=== PATIENT | male | born 1945 | race Caucasian/White ===

== ENCOUNTER 2021-01-07 09:28 | Outpatient (RCR) | payer MEDICARE, SELFPAY | END 2021-01-26 23:59 | disposition home or self-care (01) | LOC: SPT 09:28 | PROVIDERS: Family Provider Family Medicine; PCP Family Medicine; Referring Provider Orthopaedic Surgery; Visit Provider Orthopaedic Surgery | DX: M48.062 Spinal stenosis, lumbar region with neurogenic claudication (principal) | CPT/HCPCS: 97110; 97161 ==

== ENCOUNTER 2021-09-10 11:54 | Outpatient (CLI) | payer MEDICARE, SELFPAY ==
[2021-09-10 12:00] VITALS: BP 155/80; PULSE 68; RESP 16; TEMP 36.4; O2SAT 97; BMI 23.0
[2021-09-10 12:50] VITALS: BP 155/74; PULSE 54; RESP 16; TEMP 36.6; O2SAT 97
[2021-09-10 13:57] VITALS: BP 156/75; PULSE 54; RESP 18; TEMP 36.6; O2SAT 98
== END 2021-09-10 11:55 | disposition home or self-care (01) ==
LOC: OPS 11:57
PROVIDERS: PCP Family Medicine; Visit Provider Family Medicine
DX: U07.1 COVID-19 (principal)
CPT/HCPCS: 96365

== ENCOUNTER → 2022-04-26 10:55 | Outpatient (BNVA) | payer MEDICARE, SELFPAY | PROVIDERS: PCP Family Medicine; Visit Provider Family Medicine | DX: N41.1 Chronic prostatitis (principal) | CPT/HCPCS: 84153 ==

== ENCOUNTER 2022-08-17 16:29 | Outpatient (CLI) | payer MEDICARE, SELFPAY ==
--- NOTE | 2022-08-17 16:51 | XR_ITS ---
WS: [id number] Exam: XR KUB [id number] Date/Time of Exam: 08/17/2022 4:51 PM Reason For Exam: Constipation No bowel obstruction or free air. No sign of significant stool retention in the colon. Signs of prior cholecystectomy. No sign of organ enlargement. Degenerative changes and mild dextroscoliosis of the lumbar spine. XR/XR KUB [id number] IMPRESSION: 1. No acute abdominal process identified.
== END 2022-08-17 16:30 | disposition home or self-care (01) ==
PROVIDERS: PCP Family Medicine; Visit Provider Family Medicine
DX: K59.00 Constipation, unspecified (principal)
CPT/HCPCS: 74018

== ENCOUNTER → 2022-09-09 10:29 | Outpatient (BNVA) | payer MEDICARE, SELFPAY | PROVIDERS: PCP Family Medicine; Visit Provider Family Medicine | DX: N40.0 Benign prostatic hyperplasia without lower urinary tract symptoms (principal); I10 Essential (primary) hypertension | CPT/HCPCS: 80053; 80061; 85025 ==

== ENCOUNTER → 2022-10-27 09:38 | Outpatient (BNVA) | payer MEDICARE, SELFPAY | PROVIDERS: PCP Family Medicine; Visit Provider Podiatrist Foot & Ankle Surgery | DX: M20.21 Hallux rigidus, right foot (principal) | CPT/HCPCS: 73630; 99204 ==

== ENCOUNTER → 2023-01-10 09:38 | Outpatient (BNVA) | payer MEDICARE, SELFPAY | PROVIDERS: PCP Family Medicine; Visit Provider Podiatrist Foot & Ankle Surgery | DX: M20.21 Hallux rigidus, right foot (principal) | CPT/HCPCS: 99213 ==

== ENCOUNTER → 2023-01-27 11:39 | Outpatient (BNVA) | payer MEDICARE, SELFPAY | PROVIDERS: PCP Family Medicine; Visit Provider Family Medicine | DX: R30.0 Dysuria (principal) | CPT/HCPCS: 81000 ==

== ENCOUNTER → 2023-02-03 10:23 | Outpatient (BNVA) | payer MEDICARE, SELFPAY | PROVIDERS: PCP Family Medicine; Visit Provider Family Medicine | DX: R79.89 Other specified abnormal findings of blood chemistry (principal) | CPT/HCPCS: 80048 ==

== ENCOUNTER 2023-02-11 11:47 | Emergency (ER) | payer MEDICARE, SELFPAY ==
[2023-02-11] VITALS (7 sets, daily range): BP systolic 95–139; BP diastolic 57–77; PULSE 65–83; RESP 16; TEMP 36.4; O2SAT 98–99
--- NOTE | 2023-02-11 12:19 | ED_ITS ---
HPI - General Adult General: Chief complaint: General Medical Stated complaint: Low bp when active Time Seen by Provider: 02/11/23 12:19 History of Present Illness: Mr. Anthony is a 77-year-old gentleman with recent history of prostatitis on antibiotics presenting to the emergency department for generalized illness. He notes approximately 3 weeks ago beginning having episodes of lightheadedness often with position changes and generalized weakness. He does note mild chest pressure and occasional shortness of breath. Since that time he has had continued symptoms. Denies focality of weakness when present. Overall course has worsened. He took blood pressure at home and noted that his blood pressure dropped significantly when he would go from sitting to standing. No other s pecific changes in health, exacerbating, or alleviating factors identified. Onset (ago): week(s) Pain Consistency: intermittent Associated symptoms: Reports chest pain, malaise, weakness and other Review of Systems General: Reports: 10 or more systems reviewed and unremarkable except in HPI and below Const: Reports: malaise Card: Reports: chest pain REPLACED BY [facility] ED PFSH: Medical History BPH (benign prostatic hyperplasia) Hypertension Peripheral neuropathy Physical Exam Const: COMMON NORMALS: patient oriented x3 and alert GENERAL APPEARANCE: cooperative and well developed HENMT: COMMON NORMALS: normocephalic and atraumatic HEAD & SCALP: normocephalic and atraumatic THROAT: posterior oropharynx normal Eye: COMMON NORMALS: conjunctivae normal CONJUNCTIVA: Yes conjunctivae normal SCLERA: sclerae normal Neck/C-Spine: COMMON NORMALS: supple GENERAL: Yes trachea midline Resp: COMMON NORMALS: normal respiratory effort EFFORT & INSPECTION: Yes able to speak in complete sentences Cardio: COMMON NORMALS: regular rate and regular rhythm RATE: regular rate RHYTHM: regular rhythm GI: COMMON NORMALS: Soft to palpation PALPATION: Yes Soft to palpation and No Tenderness to palpation present (GI) PERCUSSION: normal to percussion Extremity: GENERAL: Yes normal exam except as noted and No edema Neuro: COMMON NORMALS: patient oriented x3, CN's II-XII intact bilaterally, moves all extremities, no focal motor deficits and no sensory deficits noted SENSORIUM/ORIENTATION: Yes alert and No Orientation impaired Psych: COMMON NORMALS: mental status grossly normal and Normal thought process present THOUGHT PROCESS: Normal thought process present Course Vital Signs: Vital signs: Vital Signs Temperature 97.6 F 02/11/23 11:50 Pulse Rate 75 02/11/23 13:46 Respiratory Rate 16 02/11/23 13:46 Blood Pressure 139/64 02/11/23 13:46 Pulse Oximetry 99 02/11/23 13:46 Oxygen Delivery Me thod Room Air 02/11/23 13:46 MDM - General Adult Medical Decision Making 77-year-old gentleman presenting with generalized illness including chest discomfort and positional low blood pressure. Exam as above. Mildly ill- appearing with no focal neurologic deficits. EKG notable for sinus rhythm with nonspecific ST segment abnormalities likely secondary to right bundle branch block. No STEMI. Labs with no leukocytosis, mild normocytic anemia. No significant electrolyte derangement. Negative range 2-hour delta troponin. Urinalysis appears without clear evidence of UTI. Chest x-ray with no lobar consolidation or pneumothorax. Patient improved with IV fluids. The results of ED evaluation were discussed with the patient including possible disposition options. I discussed risk stratification by heart score and estimated risk of major adverse cardiac events. The patient wishes to proceed with outpatient management. I discussed prescriptions and/or symptomatic cares (if applicable) including appropriate and responsible use, followup plan, and return precautions. The patient verbalized understanding and felt safe for disch arge. Medical Records I reviewed the patient's medical records. Lab Data I reviewed the patient's lab results. 02/11/23 12:51 02/11/23 12:51 Radiology Impressions Chest X-Ray 02/11/23 12:27 IMPRESSION: No active disease. Laboratory Results WBC 6.0 10^3/uL (4.0-10.0) 02/11/23 12:51 RBC 3.93 10^6/uL (4.1-5.3) L 02/11/23 12:51 Hgb 11.3 g/dL (11.7-16.6) L 02/11/23 12:51 Hct 35.8 % (42.0-52.0) L 02/11/23 12:51 MCV 91.1 fl (80-94) 02/11/23 12:51 MCH 28.8 pg (28.0-34.0) 02/11/23 12:51 MCHC 31.6 g/dL (30.0-36.0) 02/11/23 12:51 RDW 12.3 % (12.1-15.1) 02/11/23 12:51 Plt Count 188 10^3/cmm (130-400) 02/11/23 12:51 MPV 9.4 fL (7.4-10.4) 02/11/23 12:51 Neut % (Auto) 56.1 % 02/11/23 12:51 Lymph % (Auto) 20.8 % 02/11/23 12:51 [place] % (Auto) 16.1 % 02/11/23 12:51 Eos % (Auto) 4.5 % 02/11/23 12:51 Baso % (Auto) 1.2 % 02/11/23 12:51 Neut # (Auto) 3.38 10^3/uL (1.8-7.7) 02/11/23 12:51 Lymph # (Auto) 1.3 10^3/uL (0.8-4.8) 02/11/23 12:51 [place] # (Auto) 1.0 10^3/uL (0.2-0.9) H 02/11/23 12:51 Eos # (Auto) 0.3 10^3/uL (0.0-0.8) 02/11/23 12:51 Baso # (Auto) 0.1 10^3/uL (0.0-0.1) 02/11/23 12:51 Nucleated RBC % (auto) 0 % 02/11/23 12:51 Nucleated RBCs # 0.0 /100WBC 02/11/23 12:51 Sodium 139 mmol/L (136-145) 02/11/23 12:51 Potassium 4.5 mmol/L (3.5-5.1) 02/11/23 12:51 Chloride 101 mmol/L (98-107) 02/11/23 12:51 Carbon Dioxide 29 mmol/L (22-29) 02/11/23 12:51 Anion Gap 13.5 (5-19) 02/11/23 12:51 BUN 21 mg/dL (8-23) 02/11/23 12:51 Creatinine 1.0 mg/dL (0.7-1.2) 02/11/23 12:51 GFR Calculation Not Reportable 02/11/23 12:51 Glucose 89 mg/dL (65-115) 02/11/23 12:51 Calculated Osmolality 290 mOsm/kg (285-295) 02/11/23 12:51 Calcium 8.7 mg/dL (8.5-10.5) 02/11/23 12:51 Magnesium 1.9 mg/dL (1.7-2.3) 02/11/23 12:51 Total Bilirubin 0.5 mg/dL (0.15-1.2) 02/11/23 12:51 AST 17 U/L (0-40) 02/11/23 12:51 ALT 22 U/L (0-41) 02/11/23 12:51 Alkaline Phosphatase 66 U/L (40-130) 02/11/23 12:51 Troponin T Baseline 21 ng/L (0-15) H 02/11/23 12:51 Troponin T 120 Minute 20.17 ng/L (0-15) H 02/11/23 14:22 Delta Troponin T -0.83 ABS# (0-10) L 02/11/23 14:22 NT-Pro-B Natriuret Pep 100 pg/mL (0-450) 02/11/23 12:51 Total Protein 6.2 g/dL (6.6-8.7) L 02/11/23 12:51 Albumin 3.8 g/dL (3.5-5.2) 02/11/23 12:51 Globulin 2.4 g/dL (1.3-4.6) 02/11/23 12:51 TSH 3.23 uIU/mL (0.27-4.20) 02/11/23 12:51 Urine Color Yellow (Yellow) 02/11/23 12:59 Urine Appearance Clear (CLEAR) 02/11/23 12:59 Urine pH 7 (5-7) 02/11/23 12:59 Ur Specific [place] 1.005 (1.005-1.030) 02/11/23 12:59 Urine Protein Neg (Negative) 02/11/23 12:59 Urine Glucose (UA) Norm (Normal) 02/11/23 12:59 Urine Ketones Negative (Negative) 02/11/23 12:59 Urine Blood Neg (Negative) 02/11/23 12:59 Urine Nitrate Negative (Negative) 06/16/23 12:59 Urine Bilirubin Neg (Negative) 02/11/23 12:59 Urine Urobilinogen Norm mg/dL (Negative) 02/11/23 12:59 Ur Leukocyte Esterase Trace (Negative) H 02/11/23 12:59 Urine RBC 0-4 /hpf (0-2) H 02/11/23 12:59 Urine WBC 0-4 /hpf (0-5) H 02/11/23 12:59 Ur Squamous Epith Cells 0-4 /hpf (0-5) H 02/11/23 12:59 Amorphous Sediment Not Reportable 02/11/23 12:59 Urine Bacteria Not Reportable 02/11/23 12:59 Discharge Plan Discharge Patient Disposition: Home Clinical Impression: Anemia, Orthostatic hypotension, Dehydration, Chest pain Condition: Stable Prescriptions: No Action finasteride 5 mg tablet 5 mg PO DAILY Qty: 90 11RF methocarbamol 500 mg tablet 500 mg PO TID PRN (Reason: spasms) hydrocodone-acetaminophen 5-325 mg tablet 1 tab PO Q8H PRN (Reason: pain) 14 Days Qty: 30 0RF tamsulosin [Flomax] 0.4 mg capsule 0.4 mg PO DAILY Qty: 30 11RF lactulose 10 gram/15 mL solution 10 g PO DAILY PRN (Reason: constipation) Qty: 237 0RF sulfamethoxazole-trimethoprim [Bactrim DS] 800-160 mg tablet 1 tab PO BID Qty: 20 0RF gabapentin 600 mg tablet 600 mg PO TID Qty: 90 11RF Hold Instructions: Doctor's Order Discharge Orders: Discharge ED (Routine); Ordered 02/11/23 Ordered By: Rick Em Referrals: Tony Gordon MD [Primary Care Provider] - Discharge Diet: Usual diet Discharge Activity: Increase activity as tolerated Patient Instructions: Chest Pain (ED), Dehydration (ED), Hypotension (ED), Anemia (ED) Activity Restrictions/Additional Instructions: Thank you for visiting the episodes of lightheadedness and fatigue as well as chest discomfort. The exact cause of your symptoms is unclear however is likely related to dehydration and orthostatic changes. Please ensure that you are staying hydrated. I will message case management for further outpatient testing. Please follow-up with your primary care provider. Return to the emergency department for any that you are concerned about and feel needs emergency department evaluation. Coding Level of Care Code ED Pick Up Attendant for Chg Fwd
--- NOTE | 2023-02-11 12:27 | XRR_ITS ---
PROCEDURE INFORMATION: Exam: XR Chest Exam date and time: 02/11/2023 12:36 PM Age: 77 years old Clinical indication: Angina pectoris; Prior surgery; Surgery date: 6+ months; Surgery type: Hernia; Patient HX: Low BP when active. Chest pain. ; Additional info: Cp TECHNIQUE: Imaging protocol: Radiologic exam of the chest. Views: 1 view. COMPARISON: CR XR KUB [id number] 08/17/2022 4:52 PM FINDINGS: Lungs: Unremarkable. No consolidation. There are scattered chronic granulomatous changes both lung kwong. Pleural spaces: Unremarkable. No pleural effusion. No pneumothorax. Heart/Mediastinum: Unremarkable. No cardiomegaly. Bones/joints: Unremarkable for age. XR/XR chest 1V portable [id number] IMPRESSION: No active disease.
--- NOTE | 2023-02-11 12:34 | ECG_ITS ---
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 Measurements Intervals [place] Rate: 70 P: 30 RI: 137 QRS: -44 QRSD: 145 T: 36 QT: 421 QTc: 455 Interpretive Statements SINUS RHYTHM LEFT AXIS DEVIATION [QRS AXIS < -30] RIGHT BUNDLE BRANCH BLOCK [120+ ms QRS DURATION, UPRIGHT V1, 40+ ms S IN I/aVL/V4/V5/V6] Compared to ECG 05/20/2015 01:10:41 Sinus tachycardia no longer present Electronically Signed On 02-11-2023 12:55:27 CDT by Gilbert Coley M.D. [email or web address]/store/[id number]
[2023-02-11] MEDS: sodium chloride 0.9% 1,000 ML 999 ML IV (12:55)
[2023-02-11 13:03] LABS: Basophils # 0.1 10^3/uL (0.0-0.1); Basophils % 1.2 %; Eosinophils # 0.3 10^3/uL (0.0-0.8); Eosinophils % 4.5 %; Hematocrit 35.8 % (42.0-52.0); Hemoglobin 11.3 g/dL (11.7-16.6); Lymphocytes # 1.3 10^3/uL (0.8-4.8); Lymphocytes % 20.8 %; Mean Corpuscular HGB Conc 31.6 g/dL (30.0-36.0); Mean Corpuscular Hemoglobin 28.8 pg (28.0-34.0); Mean Corpuscular Volume 91.1 fl (80-94); Mean Platelet Volume 9.4 fL (7.4-10.4); Monocytes % 16.1 %; Neutrophils # 3.38 10^3/uL (1.8-7.7); Neutrophils % 56.1 %; Nucleated Red Blood Cells % 0 %; Platelet Count 188 10^3/cmm (130-400); Red Blood Count 3.93 10^6/uL (4.1-5.3); Red Cell Distribution Width 12.3 % (12.1-15.1)
[2023-02-11 13:21] LABS: Add Urine Microscopic? YES; Bilirubin Urine Neg (Negative); Blood Urine Neg (Negative); Glucose Urine UA Norm (Normal); Ketones Urine Negative (Negative); Leukocyte Esterase Urine Trace (Negative); Nitrate Urine Negative (Negative); Protein Urine Neg (Negative); Specific Gravity, Urine 1.005 (1.005-1.030); Urine Appearance Clear (CLEAR); Urine Color Yellow (Yellow); Urobilinogen Urine Norm (Negative); pH Urine 7 (5-7)
[2023-02-11 13:23] LABS: Add Urine Culture? No; RBC Urine 0-4 /hpf (0-2); Squamous Epithelial Cell Urine 0-4 /hpf (0-5); WBC Urine 0-4 /hpf (0-5)
[2023-02-11 13:29] LABS: Troponin(5th) Baseline 21 ng/L (0-15)
[2023-02-11 13:35] LABS: Alanine Aminotransferase 22 U/L (0-41); Albumin Level 3.8 g/dL (3.5-5.2); Alkaline Phosphatase 66 U/L (40-130); Aspartate Amino Transferase 17 U/L (0-40); Blood Urea Nitrogen 21 mg/dL (8-23); Calcium 8.7 mg/dL (8.5-10.5); Carbon Dioxide 29 mmol/L (22-29); Chloride 101 mmol/L (98-107); Creatinine Clr Calc Pharmacy 65.2714; Globulin 2.4 g/dL (1.3-4.6); Glucose 89 mg/dL (65-115); Magnesium 1.9 mg/dL (1.7-2.3); NT Pro B Type Natriuretic Pept 100 pg/mL (0-450); Osmolality Calculated 290 mOsm/kg (285-295); Sodium 139 mmol/L (136-145); Thyroid Stimulating Hormone 3.23 uIU/mL (0.27-4.20); Total Bilirubin 0.5 mg/dL (0.15-1.2); Total Protein 6.2 g/dL (6.6-8.7)
[2023-02-11 13:37] LABS: Anion Gap 13.5 (5-19); Potassium 4.5 mmol/L (3.5-5.1)
--- NOTE | 2023-02-11 14:28 | ECG_ITS ---
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 Measurements Intervals [place] Rate: 62 P: 7 W[place]: 134 QRS: -14 QRSD: 146 T: 54 QT: 456 QTc: 465 Interpretive Statements SINUS RHYTHM RIGHT BUNDLE BRANCH BLOCK [120+ ms QRS DURATION, UPRIGHT V1, 40+ ms S IN I/aVL/V4/V5/V6] Compared to ECG 02/11/2023 12:34:58 Left-axis deviation no longer present Electronically Signed On 02-11-2023 15:19:12 CDT by Gilbert Coley M.D. [id number]
[2023-02-11 14:46] LABS: Troponin 5 2HR 20.17 ng/L (0-15)
[2023-02-11 14:48] LABS: Troponin 5 2HR Delta -0.83 ABS# (0-10)
--- NOTE | 2023-02-13 07:48 | DCPLANNER ---
Addendum entered by Samantha Kumari 04/08/23 07:08: business resiliency manager received the following message from centralized scheduling regarding follow up testing: patient talked to Dr. Gordon and the dr said he did not need these tests Original Note: business resiliency manager had message to schedule an outpatient stress test and echocardiogram for patient. business resiliency manager faxed signed order to centralized scheduling, who will call patient with appointment information.
== END 2023-02-11 15:12 | disposition home or self-care (01) ==
PROVIDERS: Emergency Provider Emergency Medicine; PCP Family Medicine
DX: I95.1 Orthostatic hypotension (principal); D64.9 Anemia, unspecified; E86.0 Dehydration; R07.89 Other chest pain
CPT/HCPCS: 36415; 71045; 80053; 81001; 83735; 83880; 84443; 84484; 85025; 93005; 99285; J7030

== ENCOUNTER → 2023-04-18 14:52 | Outpatient (BNVA) | payer MEDICARE, SELFPAY | PROVIDERS: PCP Family Medicine; Visit Provider Family Medicine | DX: N41.1 Chronic prostatitis (principal); N40.0 Benign prostatic hyperplasia without lower urinary tract symptoms; I10 Essential (primary) hypertension | CPT/HCPCS: 84153 ==

== ENCOUNTER 2023-06-21 22:33 | Emergency (ER) | payer MEDICARE, SELFPAY ==
[2023-06-21 22:56] LABS: Basophils % 0.1 %; Eosinophils # 0.1 10^3/uL (0.0-0.8); Eosinophils % 0.4 %; Hematocrit 41.4 % (37-53); Lymphocytes # 0.4 10^3/uL (0.8-4.8); Lymphocytes % 3.4 %; Mean Corpuscular HGB Conc 32.4 g/dL (30-55); Mean Corpuscular Hemoglobin 29.4 pg (27-33); Mean Corpuscular Volume 90.8 fl (82-101); Mean Platelet Volume 10.5 fL (7.4-10.4); Monocytes # 0.2 10^3/uL (0.2-0.9); Monocytes % 1.7 %; Neutrophils # 10.46 10^3/uL (1.8-7.7); Nucleated Red Blood Cells % 0 %; Platelet Count 235 10^3/cmm (157-399); Red Blood Count 4.56 10^6/uL (3.85-5.65); Red Cell Distribution Width 11.8 % (12.1-15.1); White Blood Count 11.13 10^3/uL (3.29-11.43)
[2023-06-21 23:02] VITALS: BP 173/85; PULSE 109; RESP 18; TEMP 36.9; O2SAT 98; BMI 23.0
--- NOTE | 2023-06-21 23:07 | ECG_ITS ---
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 Measurements Intervals [place] Rate: 107 P: 56 NE: 145 QRS: -35 QRSD: 154 T: 48 QT: 313 QTc: 418 Interpretive Statements SINUS TACHYCARDIA LEFT AXIS DEVIATION [QRS AXIS < -30] RIGHT BUNDLE BRANCH BLOCK [120+ ms QRS DURATION, UPRIGHT V1, 40+ ms S IN I/aVL/V4/V5/V6] Compared to ECG 02/11/2023 14:40:54 Left-axis deviation now present Sinus rhythm no longer present Electronically Signed On 06-22-2023 8:01:55 CDT by Gilbert Coley M.D. [email or web address]/[id number]
--- NOTE | 2023-06-21 23:10 | ED_ITS ---
HPI - Nausea/Vomiting/Diarrhea General: Chief complaint: Nausea/Vomiting/Diarrhea Stated complaint: N/V Time Seen by Provider: 06/21/23 22:59 History of Present Illness: 77-year-old male patient comes in today with complaints of illness starting about 3 hours ago. Patient at first states he started having some lower abdominal pelvic discomfort about 3 hours ago. And then approximately 1 to 2 hours ago started having episodes of emesis. Patient does have a history of prostatitis and was concerned he may be becoming ill from it. Patient came in for further evaluation and treatment. Patient also noticed some episode of tachycardia. Patient does have a history of hypertension and BPH. Patient takes medications for his prostate but no other routine medicines at this time. Associated nausea: Yes Associated symtoms: Reports malaise and nausea; Denies change in vision, chest pain or dysuria Review of Systems Const: Reports: malaise; Denies: fever(s) or chills Eyes: Denies: change in vision ENMT: Reports: other (Hard of hearing chronic); Denies: throat pain Card: Denies: chest pain Resp: Denies: dyspnea GI: Reports: abdominal pain (Lower abdominal discomfort), nausea and vomiting; Denies: diarrhea or constipation : Denies: flank pain, difficulty urinating or dysuria Musc: Denies: neck pain or back pain Skin/Breast: Denies: rash PFSH ED 2 PFSH: Medical History BPH (benign prostatic hyperplasia) Hypertension Peripheral neuropathy Physical Exam Const: COMMON NORMALS: patient oriented x3 and alert HENMT: COMMON NORMALS: normocephalic HEAD & SCALP: normocephalic Neck/C-Spine: COMMON NORMALS: full ROM Chest: COMMONS NORMALS: normal inspection of the chest and normal palpation of entire chest wall Resp: COMMON NORMALS: normal respiratory effort and clear to auscultation bilaterally AUSCULTATION: clear to auscultation bilaterally Cardio: COMMON NORMALS: regular rhythm PALPATION: normal PMI RATE: tachycardic RHYTHM: regular rhythm GI: COMMON NORMALS: Soft to palpation and non-tender PALPATION: Yes Soft to palpation : COMMON NORMALS: Yes no CVA tenderness BLADDER/KIDNEY EXAM: Yes no CVA tenderness Back/Pelvis: COMMON NORMALS: no CVA tenderness and thoracic and lumbar spine normal to inspection Extremity: COMMON NORMALS: normal to inspection and no pedal edema Neuro: COMMON NORMALS: patient oriented x3 SENSORIUM/ORIENTATION: Yes alert Skin: COMMON NORMALS: turgor normal GENERAL SKIN EXAM: turgor normal Course ED course: 1240, Reviewed patient with Dr. Carroll who will assume care at the end of my shift. We are awaiting second troponin result. I suspect patient probably has the start of a prostatitis. Patient was resting well without any complaints at this time. Vital Signs: Vital signs: Vital Signs Temperature 98.5 F 06/21/23 23:02 Pulse Rate 99 06/22/23 01:03 Respiratory Rate 16 06/22/23 01:03 Blood Pressure 142/74 06/22/23 01:03 Pulse Oximetry 96 06/22/23 01:03 Oxygen Delivery Me thod Room Air 06/22/23 00:36 MDM - Nausea/Vomiting/Diarrhea Medical Decision Making Patient came in tonight for episodes of lower abdominal pain followed by nausea vomiting and tachycardia. On exam patient was pain-free. Abdomen was soft with no tenderness. Lungs were clear to auscultation. Vital signs were normal except for some mild elevation in pulse at 110, and blood pressure slightly elevated at 173/85. Differential diagnosis includes not limited to prostatitis, constipation, bowel obstruction, ACS, vasovagal response, gastroenteritis. Lab Data 06/21/23 22:51 06/21/23 22:51 Radiology Impressions KUB X-Ray 06/21/23 23:18 IMPRESSION: Moderate constipation without bowel dilation to indicate obstruction. Laboratory Results WBC 11.13 10^3/uL (3.29-11.43) 06/21/23 22:51 RBC 4.56 10^6/uL (3.85-5.65) 06/21/23 22:51 Hgb 13.40 g/dL (11.27-16.99) 06/21/23 22:51 Hct 41.4 % (37-53) 06/21/23 22:51 MCV 90.8 fl (82-101) 06/21/23 22:51 MCH 29.4 pg (27-33) 06/21/23 22:51 MCHC 32.4 g/dL (30-55) 06/21/23 22:51 RDW 11.8 % (12.1-15.1) L 06/21/23 22:51 Plt Count 235 10^3/cmm (157-399) 06/21/23 22:51 MPV 10.5 fL (7.4-10.4) H 06/21/23 22:51 Neut % (Auto) 94.0 % 06/21/23 22:51 Lymph % (Auto) 3.4 % 06/21/23 22:51 [place] % (Auto) 1.7 % 06/21/23 22:51 Eos % (Auto) 0.4 % 06/21/23 22:51 Baso % (Auto) 0.1 % 06/21/23 22:51 Neut # (Auto) 10.46 10^3/uL (1.8-7.7) H 06/21/23 22:51 Lymph # (Auto) 0.4 10^3/uL (0.8-4.8) L 06/21/23 22:51 [place] # (Auto) 0.2 10^3/uL (0.2-0.9) 06/21/23 22:51 Eos # (Auto) 0.1 10^3/uL (0.0-0.8) 06/21/23 22:51 Baso # (Auto) 0.0 10^3/uL (0.0-0.1) 06/21/23 22:51 Nucleated RBC % (auto) 0 % 06/21/23 22:51 Nucleated RBCs # 0.0 /100WBC 06/21/23 22:51 Sodium 142 mmol/L (136-145) 06/21/23 22:51 Potassium 3.5 mmol/L (3.5-5.1) 06/21/23 22:51 Chloride 102 mmol/L (98-107) 06/21/23 22:51 Carbon Dioxide 29 mmol/L (22-29) 06/21/23 22:51 Anion Gap 14.5 (5-19) 06/21/23 22:51 BUN 25 mg/dL (8-23) H 06/21/23 22:51 Creatinine 1.2 mg/dL (0.7-1.2) 06/21/23 22:51 GFR Calculation Not Reportable 06/21/23 22:51 Glucose 118 mg/dL (65-115) H 06/21/23 22:51 Calculated Osmolality 299 mOsm/kg (285-295) H 06/21/23 22:51 Calcium 9.5 mg/dL (8.5-10.5) 06/21/23 22:51 Total Bilirubin 0.3 mg/dL (0.15-1.2) 06/21/23 22:51 AST 30 U/L (0-40) 06/21/23 22:51 ALT 18 U/L (0-41) 06/21/23 22:51 Alkaline Phosphatase 74 U/L (40-130) 06/21/23 22:51 Troponin T Baseline 22 ng/L (0-15) H 06/21/23 22:57 Troponin T 120 Minute 20.98 ng/L (0-15) H 06/22/23 00:50 Delta Troponin T -1.02 ABS# (0-10) L 06/22/23 00:50 Total Protein 7.2 g/dL (6.6-8.7) 06/21/23 22:51 Albumin 4.7 g/dL (3.5-5.2) 06/21/23 22:51 Globulin 2.5 g/dL (1.3-4.6) 06/21/23 22:51 Lipase 60 U/L (13-60) 06/21/23 22:51 Urine Color Yellow (Yellow) 06/22/23 00:11 Urine Appearance Clear (CLEAR) 06/22/23 00:11 Urine pH 5 (5-7) 06/22/23 00:11 Ur Specific [place] 1.015 (1.005-1.030) 06/22/23 00:11 Urine Protein Neg (Negative) 06/22/23 00:11 Urine Glucose (UA) Norm (Normal) 06/22/23 00:11 Urine Ketones Negative (Negative) 06/22/23 00:11 Urine Blood Neg (Negative) 06/22/23 00:11 Urine Nitrate Negative (Negative) 06/22/23 00:11 Urine Bilirubin Neg (Negative) 06/22/23 00:11 Urine Urobilinogen Neg mg/dL (Negative) 06/22/23 00:11 Ur Leukocyte Esterase Negative (Negative) 06/22/23 00:11 All radiology interpretation(s) finalized by discharge EKG Data EKG 1: EKG interpretation date: 06/21/23 EKG interpretation time: 23:15 Interpretation: EKG showed a sinus tachycardia with a regular rate at [address] elevation or ectopy was noted. No prior exam was available for comparison. Computer generated interpretation: Sinus tachycardia, left axis deviation, right bundle branch block, abnormal EKG, unconfirmed report. Discharge Plan Discharge Patient Disposition: Home Clinical Impression: Acute prostatitis, Heart palpitations Condition: Stable Prescriptions: New ciprofloxacin HCl 500 mg tablet 500 mg PO Q12H Qty: 20 0RF doxycycline hyclate 100 mg tablet 100 mg PO BID 10 Days Qty: 20 0RF No Action finasteride 5 mg tablet 5 mg PO DAILY Qty: 90 11RF methocarbamol 500 mg tablet 500 mg PO TID PRN (Reason: spasms) hydrocodone-acetaminophen 5-325 mg tablet 1 tab PO Q8H PRN (Reason: pain) 14 Days Qty: 30 0RF tamsulosin [Flomax] 0.4 mg capsule 0.4 mg PO DAILY Qty: 30 11RF gabapentin 600 mg tablet 600 mg PO TID Qty: 90 11RF Hold Instructions: Doctor's Order Discharge Orders: Discharge ED (Routine); Ordered 06/22/23 Ordered By: Faisal Carroll Referrals: Tony Gordon MD [Primary Care Provider] - 1 week Patient Instructions: Heart Palpitations, Prostatitis (ED) Activity Restrictions/Additional Instructions: Please take all your medicine as prescribed. Please follow-up with your family practice doctor in the next 7 to 10 days for further evaluation and treatment. Coding Level of Care Code ED Fiscal Accounting Clerk for Dayna Smith
[2023-06-21 23:13] LABS: Alanine Aminotransferase 18 U/L (0-41); Albumin Level 4.7 g/dL (3.5-5.2); Alkaline Phosphatase 74 U/L (40-130); Anion Gap 14.5 (5-19); Aspartate Amino Transferase 30 U/L (0-40); Blood Urea Nitrogen 25 mg/dL (8-23); Calcium 9.5 mg/dL (8.5-10.5); Carbon Dioxide 29 mmol/L (22-29); Chloride 102 mmol/L (98-107); Globulin 2.5 g/dL (1.3-4.6); Glucose 118 mg/dL (65-115); Lipase 60 U/L (13-60); Osmolality Calculated 299 mOsm/kg (285-295); Potassium 3.5 mmol/L (3.5-5.1); Sodium 142 mmol/L (136-145); Total Bilirubin 0.3 mg/dL (0.15-1.2); Total Protein 7.2 g/dL (6.6-8.7)
--- NOTE | 2023-06-21 23:18 | XRR_ITS ---
PROCEDURE INFORMATION: Exam: XR Abdomen Exam date and time: 06/21/2023 11:21 PM Age: 77 years old Clinical indication: Vomiting; Prior surgery; Surgery date: 6+ months; Surgery type: Gb/hernia; Additional info: Abd pain TECHNIQUE: Imaging protocol: Radiologic exam of the abdomen. Views: Frontal supine view of the abdomen. 1 View. COMPARISON: CR XR KUB [id number] 08/17/2022 4:52 PM FINDINGS: Gastrointestinal tract: Moderate constipation without bowel dilation to indicate obstruction. Bones/joints: Lumbar spine degenerative disc space disease. XR/XR KUB [id number] IMPRESSION: Moderate constipation without bowel dilation to indicate obstruction.
[2023-06-21 23:28] LABS: Troponin(5th) Baseline 22 ng/L (0-15)
[2023-06-21 23:36] VITALS: BP 162/71; PULSE 103; RESP 16; O2SAT 96
[2023-06-21] MEDS: sodium chloride 0.9% 500 ML 999 ML IV (23:48)
[2023-06-22 00:19] LABS: Add Urine Microscopic? NO; Charge for UA Resulting for Rev
[2023-06-22 00:23] LABS: Bilirubin Urine Neg (Negative); Blood Urine Neg (Negative); Glucose Urine UA Norm (Normal); Ketones Urine Negative (Negative); Leukocyte Esterase Urine Negative (Negative); Nitrate Urine Negative (Negative); Protein Urine Neg (Negative); Specific Gravity, Urine 1.015 (1.005-1.030); Urine Appearance Clear (CLEAR); Urine Color Yellow (Yellow); Urobilinogen Urine Neg (Negative); pH Urine 5 (5-7)
[2023-06-22 00:36] VITALS: BP 152/75; PULSE 100; RESP 17; O2SAT 95
[2023-06-22 01:03] VITALS: BP 142/74; PULSE 99; RESP 16; O2SAT 96
[2023-06-22 01:17] LABS: Troponin 5 2HR 20.98 ng/L (0-15); Troponin 5 2HR Delta -1.02 ABS# (0-10)
[2023-06-22 01:34] VITALS: BP 142/74; PULSE 99; RESP 16; TEMP 36.9; O2SAT 96
== END 2023-06-22 01:36 | disposition home or self-care (01) ==
PROVIDERS: Emergency Provider Nurse Practitioner Family; PCP Family Medicine
DX: N41.0 Acute prostatitis (principal); R00.2 Palpitations; I10 Essential (primary) hypertension; N40.0 Benign prostatic hyperplasia without lower urinary tract symptoms
CPT/HCPCS: 36415; 74018; 80053; 81003; 83690; 84484; 85025; 93005; 96360; 99285; J7040

== ENCOUNTER → 2023-11-08 10:39 | Outpatient (BNVA) | payer MEDICARE, SELFPAY | PROVIDERS: PCP Family Medicine; Visit Provider Podiatrist Foot & Ankle Surgery | DX: M10.9 Gout, unspecified | CPT/HCPCS: 73630; 99213 ==

== ENCOUNTER → 2025-01-07 14:01 | Outpatient (BNVA) | payer MEDICARE, SELFPAY | PROVIDERS: PCP Family Medicine; Visit Provider Family Medicine | DX: I10 Essential (primary) hypertension (principal); M79.676 Pain in unspecified toe(s) | CPT/HCPCS: 80053; 84550 ==

== ENCOUNTER → 2025-03-26 12:24 | Outpatient (BNVA) | payer MEDICARE, SELFPAY | PROVIDERS: PCP Family Medicine; Visit Provider Family Medicine | DX: Z00.00 Encounter for general adult medical examination without abnormal findings (principal); I10 Essential (primary) hypertension; R06.00 Dyspnea, unspecified; N40.0 Benign prostatic hyperplasia without lower urinary tract symptoms | CPT/HCPCS: 80053; 80061; 82306; 82607; 83880; 84153; 84403; 84443; 85025; 86140 ==

== ENCOUNTER 2025-04-03 08:09 | Outpatient (CLI) | payer MEDICARE, SELFPAY | END 2025-04-03 08:10 | disposition home or self-care (01) | LOC: RT 08:14 | PROVIDERS: PCP Family Medicine; Visit Provider Family Medicine | DX: R06.00 Dyspnea, unspecified (principal); R94.2 Abnormal results of pulmonary function studies | CPT/HCPCS: 94010; 94726; 94729 ==

== ENCOUNTER 2025-04-26 13:10 | Outpatient (CLI) | payer MEDICARE, SELFPAY ==
--- NOTE | 2025-04-26 13:00 | CT_ITS ---
WS: [id number] CT CHEST ANGIOGRAPHY WITH REFORMATS HISTORY: dyspnea/ abnormal pft TECHNIQUE: Contiguous axial images are obtained through the chest during arterial injection of intravenous contrast. Images are reconstructed to evaluate the pulmonary arteries. MIP imaging also reviewed. All CT scans at [facility] use at least one of these dose optimization techniques: automated exposure control; mA and/or kV adjustment per patient size (includes targeted exams where dose is matched to clinical indication); or iterative reconstruction. CONTRAST: Omnipaque 350; 100 mL IV. DLP: 291.01 mGy.cm COMPARISON: None available. Good contrast opacification of the pulmonary arteries. No pulmonary embolism is identified. Mild ectasia and atherosclerosis aorta. No aneurysm. Great vessels arise normally from the aortic arch. Heart size is normal to slightly enlarged. No pericardial or pleural effusions. No RIGHT heart strain. Mild centrilobular emphysema. Biapical pleural thickening and scarring. Subsegmental atelectasis medial RIGHT upper lobe. Benign granuloma RIGHT lower lobe. Mediastinal and hilar lymph nodes with no pathologically enlarged lymph nodes. Small hiatal hernia. Normal adrenal glands. Splenic artery calcifications. No destructive bone lesions. CT/CT angio chest PE protcl [id number] IMPRESSION: 1. No pulmonary embolism. 2. No pneumonia. 3. Mild centrilobular emphysema. 4. Mildly ectatic atherosclerosis thoracic aorta. 5. Mild to moderate cardiomegaly. No RIGHT heart strain.
[2025-04-26] MEDS: iohexol 350 mg/mL 500 mL Btl (per mL) IV (13:30)
== END 2025-04-26 13:11 | disposition home or self-care (01) ==
LOC: RAD 13:11
PROVIDERS: PCP Family Medicine; Visit Provider Family Medicine
DX: J43.2 Centrilobular emphysema (principal); I77.810 Thoracic aortic ectasia; I51.7 Cardiomegaly
CPT/HCPCS: 71275

== ENCOUNTER 2025-05-22 07:44 | Outpatient (CLI) | payer MEDICARE, SELFPAY ==
--- NOTE | 2025-05-22 08:00 | USCV_ITS ---
Devon Anthony Age: 79 Gender: M : 1945 Exam Date: 05/22/2025 08:01 Ordering Phys: Tony Gordon MD Technologist: DERECK Exam Location: [facility] [place] Indication: Cardiomegaly BP: 152 / 65 HR: 54 Rhythm: Sinus Technical Quality: Adequate MEASUREMENTS (Male / Female) Normal Values 2D ECHO LV Diastolic Diameter PLAX 4.5 cm 4.2 - 5.9 / 3.9 - 5.3 cm IVS Diastolic Thickness 0.9 cm 0.6 - 1.0 / 0.6 - 0.9 cm IVS Systolic Thickness 1.4 cm LVPW Diastolic Thickness 1.4 cm 0.6 - 1.0 / 0.6 - 0.9 cm LVPW Systolic Thickness 1.7 cm LVOT Diameter 2.1 cm LV Ejection Fraction 2D Teich 63.6 % LV Ejection Fraction MOD 4C 69.0 % LV Ejection Fraction MOD 2C 59.9 % LV Ejection Fraction 2C AL 60.1 % LA Diameter 3.1 cm RA Systolic Volume 4C AL 31.2 ml RA Systolic Volume 4C MOD 30.6 ml LA Sys Volume AL 31.0 cm cubed LA Sys Volume Index AL 15.9 cm cubed/m squared Aorta at Sinotubular Diameter 2.7 cm IVC Diameter 1.3 cm M-MODE LA Ao Ratio MM 1.4 AV Cusp Separation MM 2.0 cm DOPPLER AV Peak Velocity 93.0 cm/s LVOT Peak Velocity 81.0 cm/s AV Area Cont Eq vti 2.8 cm squared AV Area Cont Eq pk 2.9 cm squared MV Peak Velocity 88.0 cm/s MV Area PHT 3.1 cm squared Mitral E to A Ratio 0.9 TR Peak Velocity 91.0 cm/s TR Peak Gradient 3.3 mmHg TV Peak E Velocity 69.0 cm/s PV Peak Velocity 88.0 cm/s FINDINGS Left Ventricle Normal left ventricular size, systolic function and wall thickness, with no regional wall motion abnormalities. Left ventricular ejection fraction is estimated at 60 %. Grade I/IV diastolic dysfunction (abnormal relaxation filling pattern), normal to mildly elevated filling pressures. Right Ventricle The right ventricle is normal in size and function. Right Atrium The right atrium is normal in size. Left Atrium The left atrium is normal in size. Mitral Valve Mildly thickened mitral valve. No mitral valve stenosis. Mild mitral valve regurgitation. Aortic Valve Mild aortic valve calcification. No aortic valve stenosis. Mild aortic valve regurgitation. Tricuspid Valve Structurally normal tricuspid valve without significant stenosis or regurgitation. Pulmonary artery systolic pressure is normal. Pulmonic Valve Structurally normal pulmonic valve without significant stenosis. There is no pulmonic regurgitation. Pericardium Normal pericardium without effusion. Aorta Normal ascending aorta dimension. IVC The inferior vena cava appears normal. CONCLUSIONS Normal left ventricular size, systolic function and wall thickness, with no regional wall motion abnormalities. Left ventricular ejection fraction is estimated at 60 %. Grade I/IV diastolic dysfunction (abnormal relaxation filling pattern), normal to mildly elevated filling pressures. Mildly thickened mitral valve. No mitral valve stenosis. Mild mitral valve regurgitation. Mild aortic valve calcification. No aortic valve stenosis. Mild aortic valve regurgitation. There is no pericardial effusion. Right atrial pressure is around 5 mm of mercury. Cherise Nagy MD (Electronically Signed) Final Date: 24 May 2025 15:31 S
== END 2025-05-22 07:45 | disposition home or self-care (01) ==
LOC: RAD 07:47
PROVIDERS: PCP Family Medicine; Visit Provider Family Medicine
DX: I08.0 Rheumatic disorders of both mitral and aortic valves (principal)
CPT/HCPCS: 93306

== ENCOUNTER 2025-08-25 17:13 | Emergency (ER) | payer MEDICARE, SELFPAY ==
--- OUTSIDE RECORDS SUMMARY | 2025-07-03 06:30 | XMS_ITS ---
Author Organization [facility] Address [address] [facility] [place] [address] Care Team Providers Care Assistant Import Manager Name Role Phone Tony Gordon Primary Care Provider Madison Dick [phone] Encounters Encounter Location Date Provider Diagnosis Pending Sale To [facility] [address] [place] [address], [place] [address] 07/03/2025 Madison Lagunas Plan Of Treatment Next Appt Details Provider Name:Madison muhammad, 10/09/2025 10:45:00 AM, [address] [place] [address], [place], [address], Provider Name:Anjel Thomas, 02/13/2026 11:00:00 AM, [address] [place] [address], [place], [address], Progress Notes * Devon ANTHONY LDOB: (79 yo M)Acc No.[id number]:07/03/2025 Patient: Devon Brizuela Provider: Yanely Lagunas MD :1945 A ge:79 Y S ex:Male Date:07/03/2025 Address:[address] [place], [place] Pcp:Tony Gordon Check In:12:13 PM REFERRAL NURSE Billing Information: * Procedure Codes: * Electronic signature of Chantal Lagunas MD on 08/25/2025 at 05:17 PM REFERRAL NURSE Sign off status: Pending * Provider: Yanely Lagunas MD Date: 09/02/2024 Generated for Sai helms/Rey/Britt on: 10/26/2024 05:17 PM REFERRAL NURSE
--- OUTSIDE RECORDS SUMMARY | 2025-08-25 17:18 | XMS_ITS | Patient Health Record ---
Author Organization [facility] Address [address] [place] [address] Care Team Providers Care Dealer Analyst Name Role Phone Tony Gordon Primary Care Provider UnavailMadison Barrientos Unavailable [phone] Fredo Son Unavailable [phone] Ayaz Soni Unavailable [phone] Vito Branham Unavailable [phone] Allergies Allergen (clinical drug ingredient) Drug/Non Drug Allergy documented on EMR Reaction Allergy Type Onset Date Status Substance with sulfonamide structure and antibacterial mechanism of action (substance) Sulfa Antibiotics Unknown Drug Allergy Active Results Component Value Reference Range Notes Electrocardiogram (EKG) - 93 000 Reviewed date:06/26/2025 04:53:06 PM Interpretation: Performing Lab: Notes/Report: CT Cardiac Scoring Diagnosti [id number] Reviewed date:07/01/2025 10:19:41 AM Interpretation: Performing Lab: Notes/Report: [id number]&org=iSite Holter x 48 Hour-90760 Reviewed date:07/19/2025 11:42:53 AM Interpretation: Performing Lab: Notes/Report: CT Cardiac Scoring Diagnosti [id number] Reviewed date:07/03/2025 01:00:59 PM Interpretation: Performing Lab: Notes/Report: See Below For Report CT Cardiac Scoring Diagnostic Diagnosis Description: Shortness of breath Read See Below For Report NM Stress (Treadmill) Cardio lite-[id number] Reviewed date:07/09/2025 08:17:37 AM Interpretation: Performing Lab: Notes/Report: [id number]&org=iSite NM Stress (Treadmill) Cardio lite-35769 Reviewed date:07/09/2025 08:17:25 AM Interpretation: Performing Lab: Notes/Report: See Below For Report NM Stress (Treadmill) Cardiolite Read See Below For Report NM Stress (Treadmill) Cardio lite-51311 Reviewed date:06/26/2025 10:26:05 AM Interpretation: Performing Lab: Notes/Report: Schedule Confirmation Reviewed date:06/27/2025 12:08:26 PM Interpretation: Performing Lab: Notes/Report: CT Cardiac Scoring Diagnostic zzzCT Cardiac Scoring Diagno stic RAD Reviewed date:07/01/2025 10:19:41 AM Interpretation: Performing Lab: Notes/Report: [id number]&org=iSite Schedule Confirmation Reviewed date:07/01/2025 10:19:41 AM Interpretation: Performing Lab: Notes/Report: CT Cardiac Scoring Diagnostic zzzCT Cardiac Scoring Diagno stic RAD Reviewed date:07/01/2025 10:19:41 AM Interpretation: Performing Lab: Notes/Report: See Below For Report CT Cardiac Scoring Diagnostic RAD Read See Below For Report Reason For Referral Reason SOB [facility] 1 09/16: LVM February 13, 2026 11 am Diagnosis 1 SOB (shortness of br eath) (R06.02) Referring Provider First Name Madison Referring Provider Last Name Janneth Referring Provider Speciality Cardiology Referred Organization [facility] Referred Provider Anjel Da Silva Referred Address [address] [place] [address] [address] [facility],[address], General Notes Sophy Tan 1 09/17/2024 09:25:31 AM CUSTOM WOOD STAIR BUILDER > scheduled February 13, 2026 at 11 am , TO HELP EXPIDITE PATIENT'S CARE, DR. DA SILVA IS ASKING THAT YOU SEND A PULMONARY FUNCTION TEST ORDER TO OUR CLINIC OR TO THE HOSPITAL. PATIENT WILL NEED THIS COMPLETED BEFORE THIER APPOINTMENT. THANK YOU Referral Priority Routine Reason SOB Diagnosis 1 SOB (shortness of br eath) (R06.02) Referral Organization [facility] Referring Provider First Name Madison Referring Provider Last Name Janneth Referring Provider Speciality Cardiology Referred Organization [facility] Referred Provider Anjel Da Silva Referred Address [address] [place] [address] [place],[address] Referred Provider Specialty Pulmonary Aleena renee Referral Priority Routine Medications Medication SIG (Take, Route, Frequency, Duration) Notes Start Date End Date Status Gabapentin 600 MG Tablet 1 tablet Orally 3 times a day Active Finasteride 5 MG Tablet TAKE 1 TABLET EV DELMA DAY; Duration: 90 Active Famotidine 20 MG Tablet 1 tablet at bedt stephen as needed Orally Once a day Active Nitroglycerin 0.4 MG Tablet Sublingual as directed Sublingual every 5 minutes as needed for chest pain; not to exceed 3 tablets in 15 minutes; if symptoms persist, go to ER; not to be taken within 48 hours of erectile dysfunction medication; Duration: 30 days 07/10/2025 Active Tamsulosin HCl 0.4 MG Capsule 1 capsule Orally Once a day Active Aspirin 81 81 MG Tablet Delayed Release 1 tablet Orally Once a day; Duration: 30 day(s) 07/10/2025 Active Rosuvastatin Calcium 10 MG Tablet 1 tablet Orally Once a day; Duration: 30 days 07/10/2025 Active Immunizations Vaccine Route Administration Date Status Comme nts Influenza (whole), CPT 18788 Inactive Unknown 12/20/2017 Administered Influenza (whole), CPT 81003 Inactive Unknown 04/24/2019 Administered Social History Tobacco Use: Social History Observation Description Date Details (start date - stop date) Former Smoker NA - NA Social History Drugs/Alcohol: Social Info Question Answer Notes Caffeine Intake: 1-2 cups per day Tobacco Use: Social Info Question Answer Notes Tobacco Control (Standard) Tobacco use: Former smoker How long has it been since you last smoked? Greater than 10 years Additional Details Category Social Info Options Details Drugs/Alcohol: Do you smoke marijuana? De nies Do you drink alcohol? No Problems Problem Type SNOMED Code ICD Code Onset Dates Problem Status W/U Status Risk Notes Problem Chronic prostatitis (03428573) Chronic prostatitis (N41.1) Active confirmed Problem Dyspnea (051103201) SOB (shortness of breath) (R06.02) Active confirmed Problem Dizziness (258818848) Dizziness (R42) Active confirmed Problem Pulmonary emphysema (24010495) Emphysema lung (J43.9) Active confirmed Problem Cardiovascular stress test abnormal (993400395) Abnormal stress test (R94.39) Active confirmed Problem Acute constipation (328949529) Acute constipation (K59.00) Active confirmed Problem Coronary artery disease (33217430) CAD (coronary artery disease) (I25.10) Active confirmed Problem Enlarged prostate (890818317) Enlarged prostate (N40.0) Active confirmed Problem Left bundle branch hemiblock (2382085) 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) Active confirmed Problem Right bundle branch block (28392392) RBBB (I45.10) Active confirmed Vital Signs Heart Rate 57 /min 07/10/2025 Height-cm 182.88 cm 07/10/2025 Oximetry 97 % 07/10/2025 Blood pressure diastolic 80 mm Hg 07/10/2025 Weight-kg 76.48 kg 07/10/2025 Height 72 in 07/10/2025 Blood pressure systolic 140 mm Hg 07/10/2025 Weight 168.6 lbs 07/10/2025 BMI 22.86 kg/m2 07/10/2025 Encounters Encounter Location Date Provider Diagnosis [facility] [address] [address] 07/10/2025 Madison Lagunas SOB (shortness of breath) R06.02 ; Dizziness R42 ; CAD (coronary artery disease) I25.10 ; Abnormal stress test R94.39 ; Emphysema lung J43.9 ; RBBB I45.10 and LAFB (left anterior fascicular block) I44.4 [facility] [address] [place] [address] 06/26/2025 Madison Lagunas SOB (shortness of breath) R06.02 ; Dizziness R42 ; Emphysema lung J43.9 ; RBBB I45.10 and LAFB (left anterior fascicular block) I44.4 [facility] [address] [place] [address] 01/25/2025 [facility]counter for screening for cardiovascular disorders Z13.6 [facility] [address] [place] [address] 07/03/2025 Madison Lagunas [facility] [address] [place] [address] 06/18/2025 Madison Lagunas [facility] [address] [facility] [place] [address] 04/01/2025 Vito Branham [facility] [address] [place] [address] 07/19/2025 Madison Shettyshi [facility] [address] [place] [address] 07/18/2025 Madison Sehttyshi [facility] [address] [place] [address] 07/09/2025 Madison Shettyshi [facility] [address] [place] [address] 07/04/2025 Madison Shettyshi [facility] [address] [place] [address] 07/04/2025 Paullaurel Shettyshi Assessments Encounter Date Diagnosis (ICD Code) Assessment Notes Treatment Notes Treatment Clinical Notes Section Notes 07/10/2025 SOB (shortness of breath) (ICD-10 - R06.02) Since her last appointment, he shortness of breath has improved. Continues to deny any chest pain. Patient has CAD based on a CT calcium score around 2300 Stress test showed a small area of ischemia which is not high risk finding We talked about further optimization of CAD medication including starting baby aspirin 81 Crestor 10 provide sublingual nitro talked about ER precaution. Follow-up in 3 months to reassess and to monitor his shortness of breath which is currently improving. If the patient develops any new chest pain or pressure or worsening shortness of breath then it would be reasonable to consider coronary angiogram at that point. 07/10/2025 Dizziness (ICD-10 - R42) Patient has appointment to have monitor at the [facility] for 2 days for evaluation of dizziness in the setting of baseline right bundle branch block with left anterior fascicular block. Since her last appointment, normal dizziness. 06/26/2025 SOB (shortness of breath) (ICD-10 - R06.02) Patient is a 79-year-old male who is here for evaluation of shortness of breath over the past 2 months. He shortness of breath is exertional concerning for angina. We talked about the benefit of a CT calcium score. We talked about benefit of treadmill stress test to evaluate extent of myocardial ischemia. Otherwise the patient denied any chest pain or chest pressure. Of note, patient had a CT chest in [place] in March 2025. Which was negative for PE or pneumonia. However it showed mild emphysema. We talked about referring him to county records management officer for further evaluation from the lung standpoint. EKG in office today indication shortness of breath dizziness emphysema by CT scan of the lung finding sinus bradycardia heart rate is 58 right bundle branch block left anterior fascicular block 06/26/2025 Dizziness (ICD-10 - R42) The patient reports occasional dizziness when he is bending over. The EKG from today showed a sinus bradycardia with right bundle branch block with left anterior fascicular block. We talked about the benefit of monitor at the [facility]. EKG in office today indication shortness of breath dizziness emphysema by CT scan of the lung finding sinus bradycardia heart rate is 58 right bundle branch block left anterior fascicular block 01/25/2025 Encounter for screening for cardiovascular disorders (ICD-10 - Z13.6) 06/26/2025 Emphysema lung (ICD-10 - J43.9) Referred to county records management officer EKG in office today indication shortness of breath dizziness emphysema by CT scan of the lung finding sinus bradycardia heart rate is 58 right bundle branch block left anterior fascicular block 07/10/2025 CAD (coronary artery disease) (ICD-10 - I25.10) 07/10/2025 Abnormal stress test (ICD-10 - R94.39) 06/26/2025 RBBB (ICD-10 - I45.10) EKG in office today indication shortness of breath dizziness emphysema by CT scan of the lung finding sinus bradycardia heart rate is 58 right bundle branch block left anterior fascicular block 07/10/2025 Emphysema lung (ICD-10 - J43.9) 06/26/2025 LAFB (left anterior fascicular block) (ICD-10 - I44.4) EKG in office today indication shortness of breath dizziness emphysema by CT scan of the lung finding sinus bradycardia heart rate is 58 right bundle branch block left anterior fascicular block 07/10/2025 RBBB (ICD-10 - I45.10) 07/10/2025 LAFB (left anterior fascicular block) (ICD-10 - I44.4) 06/26/2025 Other Karime Brown medical accounts receivable specialist, am scribing for Madison Lagunas MD. Madison Brown MD, personally performed the services described in this documentation , as scribed by Karime Hobbs in my presence, and it is both accurate and complete. EKG in office today indication shortness of breath dizziness emphysema by CT scan of the lung finding sinus bradycardia heart rate is 58 right bundle branch block left anterior fascicular block 07/10/2025 Other Karime Brown medical accounts receivable specialist, am scribing for Madison Lagunas MD. Madison Brown MD, personally performed the services described in this documentation , as scribed by Karime Hobbs in my presence, and it is both accurate and complete. Plan Of Treatment Pending Test Test Name Order Date UA Without Micro-Auto, Machine - 13215 0 02/02/2023 Next Appt Details Provider Name:Madison muhammad, 10/09/2025 10:45:00 AM, [address] [place] [address], [phone], Provider Name:Anjel Da Silva, 02/13/2026 11:00:00 AM, [address] [place] [address] [place], [address], Insurance Providers Payer Name Payer Address Payer Phone Subscriber Number Group Number Insured Name Patient Relationship to Insured Coverage Start Date Coverage End Date [employer] Medicare Replacement [address] [address] [place] [address] [id number] Devon Anthony Self - patient is the insured [place] Medicare [address] [place] [address] [id number] Devon Anthony Self - patient is the insured Medical (General) History Medical History History ICD Code Neuropathy Prostatitis constipation hypertension Anxiety Neuropathy Chicken Pox Measles Mumps Nephropathy GERD Back Trouble Hernia covid vaccinated Surgical History Surgery Date(Month/Year) hernia repair left foot sx greenlight prostate cholecystectomy Echo in 04/2025 ef 60% mild MR and AR No effusion Hospitalization History Reason Date(Month/Year) ED - chest pain burning sensation per pt sob also reported. 04/20/25 ED - Constipation 08/01/22 ED - back and left hip pa in, radiating down both legs for past week, with symptoms worsening last night 01/31/23 ED - Fever 01/30/23
--- OUTSIDE RECORDS SUMMARY | 2025-08-25 17:18 | XMS_ITS | Clinical Summary ---
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
--- OUTSIDE RECORDS SUMMARY | 2025-08-25 17:18 | XMS_ITS | Clinical Summary ---
Author Organization [facility] Address [address] [facility] [address] [place] [address] Phone Care Team Providers Care Horticulture Instructor Name Role Phone Tony Gordon MD Primary Care Provider [phone] Medications HYDROcodone-rick taminophen (NORCO) 5-325 mg Oral tablet Take 1 Tab by mouth every 4 hours as needed for Pain, Moderate (For Pain Scale 4-6). 30 Tab 0 09/22/2012 Active oxyCODONE-aceta minophen (PERCOCET) 10-325 mg Oral Tab Take 1 Tab by mouth every 4 hours as needed for Pain, Severe (For Pain Scale 7-10). 20 Tab 0 09/22/2012 Active piroxicam (FELDENE) 20 mg Oral capsule Take 1 Cap by mouth daily. 30 Cap 2 09/22/2012 Active Social History Tobacco Use Types Packs/Day Years Used Date Smoking Tobacco: Never Assessed Sex and Gender Information Value Date Recorded Sex Assigned at Not on file Legal Sex Male 5:35 AM MANAGER STATISTICAL Gender Identity Not on file Sexual Orientation Not on file Last Filed Vital Signs Vital Sign Reading Time Taken Comments Blood Pressure 131/89 09/22/2012 12:19 PM MANAGER STATISTICAL Pulse 61 09/22/2012 12:19 PM MANAGER STATISTICAL Temperature 36.4 C (97.6 F) 09/22/2012 11:43 AM MANAGER STATISTICAL Respiratory Rate 18 09/22/2012 12:19 PM MANAGER STATISTICAL Oxygen Saturation 97% 09/22/2012 12:19 PM MANAGER STATISTICAL Inhaled Oxygen Concentration - - Weight 81.2 kg (179 lb) 09/22/2012 8:49 AM MANAGER STATISTICAL Height 182.9 cm (6') 09/22/2012 8:49 AM MANAGER STATISTICAL Body Mass Index 24.28 09/22/2012 8:49 AM MANAGER STATISTICAL Plan of Treatment Health Maintenance Due Date Last Done Comments DTAP/TDAP/TD VACCINES (1 - Tdap) 1962 PNEUMOCOCCAL VACCINE 50+ YEARS (1 of 1 - PCV) 09/21/18 94 ZOSTER VACCINE (1 of 2) 1993 RSV VACCINE (60+ or ) (1 - 1-dose 75+ series) 2018 INFLUENZA VACCINE (#1) 2025 Insurance [employer] [id number] HMO Care Teams Horticulture Instructor Relationship Specialty Start Date End Date Tony Gordon MD [address] [place] [phone] PCP - General Family Practice 08/03/12
--- OUTSIDE RECORDS SUMMARY | 2025-08-25 17:18 | XMS_ITS | Encounter Summary ---
Author Organization [facility] Address [address] [place] [address] Care Team Providers Care Business Objects Report Developer Name Role Phone Tony Gordon MD Primary Care Provider [phone] Encounter Details Date Type Department Care Team (Latest Contact Info) Description 07/18/2012 Ancillary Orders [facility] Centralized Scheduling [address] [place] [id number] Kevin Shi, JOE [address] [place], [place] [id number] Sinus tarsi syndrome Social History Tobacco Use Types Packs/Day Years Used Date Smoking Tobacco: Never Assessed Sex and Gender Information Value Date Recorded Sex Assigned at Not on file Legal 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
--- OUTSIDE RECORDS SUMMARY | 2025-08-25 17:18 | XMS_ITS | Encounter Summary ---
Author Organization [employer] [facility] Address [address] [place] [address] Care Team Providers Care Internet Media Planner Name Role Phone Tony Gordon MD Primary Care Provider [phone] Encounter Details Date Type Department Care Team (Latest Contact Info) Description 03/07/2002 Outpatient Historical [facility] MeganNicola MD [address] [address] ABDOMINAL PAIN UNSPEC SITE (Primary Dx); SCREENING MAL NEOP-COLON Social History Tobacco Use Types Packs/Day Years Used Date Smoking Tobacco: Never Assessed Sex and Gender Information Value Date Recorded Sex Assigned at Not on file Legal Sex Male 5:35 AM SWING SAW 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
--- OUTSIDE RECORDS SUMMARY | 2025-08-25 17:18 | XMS_ITS | Encounter Summary ---
Author Organization [employer] [facility] Address [address] [place] [address] Care Team Providers Care Train Driver Name Role Phone Tony Gordon MD Primary Care Provider [phone] Encounter Details Date Type Department Care Team (Latest Contact Info) Description 03/05/2002 Outpatient Historical HIS [facility] Armando Perez, Andrea Willis MD [address] [place] [address] MUSCSKEL SYMPT LIMB NEC (Primary Dx); ABDOMINAL PAIN UNSPEC SITE Social History Tobacco Use Types Packs/Day Years Used Date Smoking Tobacco: Never Assessed Sex and Gender Information Value Date Recorded Sex Assigned at Not on file 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
--- OUTSIDE RECORDS SUMMARY | 2025-08-25 17:18 | XMS_ITS | Encounter Summary ---
Author Organization [facility] Address [address] [place] [address] Care Team Providers Care A And P Mechanic Name Role Phone Tony Gordon MD Primary Care Provider [phone] Reason for Referral * Outpatient Services (Routine) - Closed Specialty Diagnoses / Procedures Referred By Selam hightower Referred To Contact Diagnoses Pain in limb Procedures CT ANKLE WO CONTRAST BILAT Kevin Shi DPM [address] [place] [address] Phone: tel: fax: Referral ID Status Reason Start Date Expiration Date Visits Re quested Visits Authorized [id number] Closed 08/01/2012 08/01/2013 1 1 ER MANAGEMENT SPECIALIST * Outpatient Services (Routine) - Closed Specialty Diagnoses / Procedures Referred By Selam hightower Referred To Contact Diagnoses Pain in limb Procedures CT FOOT WO CONTRAST BILAT Kevin Shi DPM [address] [place] [address] Phone: tel: fax: Referral ID Status Reason Start Date Expiration Date Visits Re quested Visits Authorized [id number] Closed 08/01/2012 08/01/2013 1 1 ER MANAGEMENT SPECIALIST Encounter Details Date Type Department Care Team (Late st Contact Info) Description 08/01/[address] 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 Gender Identity Not on file Sexual Orientation Not on file documented as of this encounter Plan of Treatment Not on file documented as of this encounter Results * CT ANKLE WO CONTRAST BILAT (08/03/2012 8:22 AM TIMBER MANAGEMENT SPECIALIST) Anatomical Region Laterality Modality Ankle / Foot Computed Tomogra phy 08/03/2012 7:54 AM TIMBER MANAGEMENT SPECIALIST Narrative 08/03/2012 12:07 PM TIMBER MANAGEMENT SPECIALIST PROCEDURE Bilateral ANKLE CT, noncontrast 03 August 2012 TECHNIQUE Helical axial imaging was obtained from above the ankle mortise through the calcaneus at 0.5 mm increments 4 259 axial images on the right and 243 axial images on the left. Sagittal and coronal reconstructions are obtained. DESCRIPTION No acute fracture, dislocation, or deformity is seen. There is mild arthritic change with slight narrowing of the talonavicular joint bilaterally. The ankle mortise appears intact. There is incidental note of a 7 mm cortical lucency anteriorly in the distal tibia just above the epiphyseal plate. No abnormal soft tissue calcification or swelling is appreciated. IMPRESSION essentially normal bilateral ankle CT Procedure Note Jacoby Gaspar MD - 08/03/[address], noncontrast 03 August 2012 TECHNIQUE Helical axial imaging was obtained from above the ankle mortise through the calcaneus at 0.5 mm increments 4 259 axial images on the right and 243 axial images on the left. Sagittal and coronal reconstructions are obtained. DESCRIPTION No acute fracture, dislocation, or deformity is seen. There is mild arthritic change with slight narrowing of the talonavicular joint bilaterally. The ankle mortise appears intact. There is incidental note of a 7 mm cortical lucency anteriorly in the distal tibia just above the epiphyseal plate. No abnormal soft tissue calcification or swelling is appreciated. IMPRESSION essentially normal bilateral ankle CT Kevin Shi DPM CT ORDERABLES Final Result * CT FOOT WO CONTRAST BILAT (08/03/2012 8:22 AM TIMBER MANAGEMENT SPECIALIST) Anatomical Region Laterality Modality Ankle / Foot Computed Tomogra phy 08/03/2012 7:53 AM TIMBER MANAGEMENT SPECIALIST Narrative 08/03/2012 12:21 PM TIMBER MANAGEMENT SPECIALIST PROCEDURE Bilateral FOOT CT, noncontrast 03 August 2012 TECHNIQUE Helical axial imaging was obtained from above the ankle mortise through the plantar aspect of the foot at 0.5 mm increments for 343 axial images on the right and 321 axial images on the left. Sagittal and coronal reconstructions are obtained. DESCRIPTION There is no acute fracture or subluxation or deformity seen. There is a small corticated accessory ossicle near the tip of the left medial malleolus. Slight bilateral narrowing of the talonavicular joint is noted. No periosteal reaction or abnormal soft tissue calcification is seen. IMPRESSION 1. minimal osteoarthritis 2. essentially negative study Procedure Note Jacoby Gaspar MD - 08/03/[address], noncontrast 03 August 2012 TECHNIQUE Helical axial imaging was obtained from above the ankle mortise through the plantar aspect of the foot at 0.5 mm increments for 343 axial images on the right and 321 axial images on the left. Sagittal and coronal reconstructions are obtained. DESCRIPTION There is no acute fracture or subluxation or deformity seen. There is a small corticated accessory ossicle near the tip of the left medial malleolus. Slight bilateral narrowing of the talonavicular joint is noted. No periosteal reaction or abnormal soft tissue calcification is seen. IMPRESSION 1. minimal osteoarthritis 2. essentially negative study Kevin Shi [facility] CT ORDERABLES Final Result documented in this encounter Visit Diagnoses Diagnosis Pain in limb Pain in limb Pain in limb documented in this encounter Care Teams A And P Mechanic Relationship Specialty Start Date End Date Tony Gordon MD [address] [place] [address] PCP - General Family Practice 08/03/12 documented as of this encounter
--- OUTSIDE RECORDS SUMMARY | 2025-08-25 17:18 | XMS_ITS | Patient Health Record ---
Author Organization [facility] Address [address] [place] [address] Care Team Providers Care Milk Collector Name Role Phone Tony Gordon Primary Care Provider MAY Sanches Unavailable [phone] Allergies Allergen (clinical drug ingredient) Drug/Non Drug Allergy documented on EMR Reaction Allergy Type Onset Date Status Substance with sulfonamide structure and antibacterial mechanism of action (substance) Sulfa Antibiotics Unknown Drug Allergy Active Results Component Value Reference Range Notes AutoUA Reviewed date:07/10/2025 02:15:05 PM Interpretation: Performing Lab: Notes/Report: Reason For Referral No Information Medications Medication SIG (Take, Route, Frequency, Duration) Notes Start Date End Date Status Famotidine Active Gabapentin 600 MG Tablet 1 tablet Orally Once a day Active B Complex - Capsule as directed Orally Active Levaquin *[facility]* Not-Taking Propranolol Propranolol *Reorder from [facility] for eRx and Interaction Alerts* 04/27/2016 Not-Taking Finasteride 5 MG Tablet TAKE 1 TABLET EVERY DAY; Duration: 90 Active Aspirin 81 MG Tablet Chewable 1 tablet Orally Once a day Aspirin 04/27/2016 Active Methocarbamol Not-Ta shyann HYDROcodone-Acetaminophe n Active Tamsulosin HCl 0.4 MG Capsule 1 capsule Orally Once a day; Duration: 90 days 6 Active hydroCHLOROthiazide 12.5 MG Tablet 1 tablet in the morning Orally Once a day Active Immunizations Vaccine Route Administration Date Status Comme nts Influenza (whole), CPT 27499 Inactive Unknown 12/20/2017 Administered Influenza (whole), CPT 79820 Inactive Unknown 04/24/2019 Administered Social History Tobacco Use: Social History Observation Description Date Details (start date - stop date) Never Smoker NA - NA Social History Drug/Alcohol: Social Info Question Answer Notes AUDIT-C (Standard) Did you have a drink containing alcohol in the past year? No Points 0 Interpretation Negative Tobacco Use: Social Info Question Answer Notes Tobacco Control (Standard) Tobacco use: Nonsmoker Additional Details Category Social Info Options Details Migrated Social History Tobacco Use: (Tob acco Use/Smoking):Are you a: former smoker , How long has it been since you last smoked?: > 10 years Drug/Alcohol: Do you smoke marijuana? 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) Active confirmed Problem Enlarged prostate (672174305) Enlarged prostate (N40.0) Active confirmed Vital Signs Heart Rate 56 /min 07/10/2025 Blood pressure diastolic 84 mm Hg 07/10/2025 Weight-kg 74.84 kg 07/10/2025 Height 72 in 07/10/2025 Blood pressure systolic 140 mm Hg 07/10/2025 Weight 165 lbs 07/10/2025 BMI 22.38 kg/m2 07/10/2025 Procedures Procedure Date Ordered Date Performed Result Body Sit e Bladder Scan 07/10/2025 N/A Encounters Encounter Location Date Provider Diagnosis [facility], [facility] [address] [place] [address] 07/10/2025 MAY ZUNIGA Chronic prostatitis N41.1 and Benign localized hyperplasia of prostate with urinary obstruction N40.1 Assessments Encounter Date Diagnosis (ICD Code) Assessment Notes Treatment Notes Treatment Clinical Notes Section Notes 07/10/2025 Chronic prostatitis (ICD-10 - N41.1) Pt doing well without recent flare. Continue finasteride prevention. 07/10/2025 Benign localized hyperplasia of prostate with urinary obstruction (ICD-10 - N40.1) Doing well without bothersome LUTS. Continue tamsulosin. Reassess in 1 year with FR/PVR. 07/10/2025 Other Quantitative urinalysis (JEAN CLAUDE) uses spectrophotometric quantification methods and creatinine normalization to provide precise, reproducible results for urine analytes. This approach improves clinical accuracy and supports medically necessary assessment of urinary tract, renal, and metabolic conditions relevant to urologic care Plan Of Treatment Pending Test Test Name Order Date UA Without Micro-Auto [id number] 02/02/2023 Basic Metabolic Panel [id number] 02/02/2023 Bladder scan 04/28/2020 Bladder scan 04/28/2021 Bladder Scan 07/10/2025 Bladder Scan 06/28/2023 Future Test Test Name Order Date PSA Medicare Screening--G0103 04/28/2022 PSA, TOTAL (5363) 05/03/2024 Next Appt Details Provider Name:MAY CHURCH, 07/09/2026 11:20:00 AM, [address] [place], [address], Insurance Providers Payer Name Payer Address Payer Phone Subscriber Number Group Number Insured Name Patient Relationship to Insured Coverage Start Date Coverage End Date [employer] Medicare Replacement [address] [address] [place], [place] [id number] Devon Anthony Self - patient is the insured Medical (General) History Medical History History ICD Code Neuropathy Prostatitis BPH Surgical History Surgery Date(Month/Year) hernia left foot sx greenlight prostate cataract extraction 3-4 eye surgeries
--- NOTE | 2025-08-25 17:24 | ECG_ITS ---
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: : 1945 Requested By: Jeannette Abbott Order Number: [id number] Hannah MD: CATY TRENT Measurements Intervals [place] Rate: 140 P: 0 [place]: 0 QRS: -24 QRSD: 145 T: 62 QT: 316 QTc: 483 Interpretive Statements ATRIAL FIBRILLATION WITH RAPID VENTRICULAR RESPONSE INDETERMINATE AXIS RIGHT BUNDLE BRANCH BLOCK [120+ ms QRS DURATION, UPRIGHT V1, 40+ ms S IN I/aVL/V4/V5/V6] Compared to ECG 06/21/2023 23:07:04 Indeterminate axis now present Sinus tachycardia no longer present Left-axis deviation no longer present Electronically Signed On 08-25-2025 22:50:21 [employer]ED[employer] by CATY TRENT [email or web address]
[2025-08-25 17:30] VITALS: BP 128/86; PULSE 140; RESP 16; TEMP 36.6; O2SAT 98; BMI 22.4
[2025-08-25] MEDS: dilTIAZem 5 mg/mL SDV 5 mL 10 MG IVP ×2 (17:46→19:15)
--- NOTE | 2025-08-25 17:48 | XRR_ITS ---
PROCEDURE INFORMATION: Exam: XR Chest Exam date and time: 08/25/2025 5:59 PM Age: 79 years old Clinical indication: Shortness of breath; C/O SOB. History of afib. ; Additional info: Short of breath TECHNIQUE: Imaging protocol: Radiologic exam of the chest. 377 image(s) are submitted. Views: 1 view. COMPARISON: CT angio chest PE protcl [id number] 04/26/2025 1:24 PM FINDINGS: Lungs: Unremarkable. No consolidation. Pleural spaces: Unremarkable. No pleural effusion. No pneumothorax. Heart/Mediastinum: Unremarkable. No cardiomegaly. Bones/joints: Unremarkable. XR/XR chest 1V portable [id number] IMPRESSION: No acute findings. 6 mm calcified granuloma in the right lower lobe, unchanged.
[2025-08-25 17:49] LABS: Hematocrit 42.6 % (37-53); Hemoglobin 13.40 g/dL (11.27-16.99); Mean Corpuscular HGB Conc 31.5 g/dL (30-55); Mean Corpuscular Hemoglobin 29.0 pg (27-33); Mean Corpuscular Volume 92.2 fl (82-101); Nucleated Red Blood Cells % 0 %; Platelet Count 211 10^3/cmm (157-399); Red Blood Count 4.62 10^6/uL (3.85-5.65); White Blood Count 8.20 10^3/uL (3.29-11.43)
--- NOTE | 2025-08-25 17:49 | ED_ITS ---
HPI - Arrhythmia/Palpitations 2 General: Chief Complaint: Arrhythmia/Palpitations Stated Complaint: afib Time Seen by Provider: 08/25/25 17:36 History of Present Illness: Patient is 79-year-old gentleman with history of BPH, presents to the emergency room due to palpitations. He denies any chest pain with this. He has never had an incident of A-fib. He has had increasing shortness of breath, over the last 6-8 weeks. He was seeing cardiology at [place], and was referred to a ripsaw matcher outpatient, and has an appointment in 6-months. Today, patient's heart started racing. This happened 1-1/2-hour prior to arrival. He does feel a synthetic anxiety. He has increasing shortness of breath with this. He was recently diagnosed with gout, and finishing up a Medrol Dosepak. No recent cold or illness. Associated symptoms: Deny nausea or vomiting Related Data Home Medications ?Medication ?Instructions ?Recorded ?Confirmed famotidine 20 mg tablet 20 mg PO QDAY 03/26/2505/16 Previous Rx's ?Medication ?Instructions ?Recorded gabapentin 600 mg tablet See Rx Instructions .Route 0 12/05/24 .COMPLEX #90 tabs tamsulosin 0.4 mg capsule See Rx Instructions .Route 0 01/18/25 .COMPLEX #30 caps finasteride 5 mg tablet See Rx Instructions .Route 0 04/08/25 .COMPLEX #90 tabs prednisone 10 mg tablet 10 mg PO DAILY #5 tabs 05/16 methylprednisolone 4 mg tablets in See Rx Instructions PO PER PKG DIR 08/20/25 a dose pack (Medrol (Kevyn)) #21 ea apixaban 5 mg tablet (Eliquis) 5 mg PO Q12H #60 tabs 1 10/26/24 diltiazem HCl 180 mg 180 mg PO DAILY #30 caps capsule,extended release 24 hr (Cardizem CD) Allergies Allergy/AdvReac Type Severity Reaction Status Date / Time Sulfa (Sulfonamide Allergy Unknown Verified 11/08/23 10:31 Antibiotics) levaquin Allergy Intermediate myalgias Uncoded 11/08/23 10:31 Review of Systems 2 General: Reports: 10 or more systems reviewed and unremarkable except in HPI and below Const: Denies: fever(s) or chills Eyes: Denies: change in vision Card: Reports: palpitations, irregular heart rhythm and dyspnea on exertion; Denies: chest pain, swelling of feet/ankles, lightheadedness or orthopnea Resp: Reports: dyspnea; Denies: productive cough GI: Denies: abdominal pain, nausea or vomiting : Denies: flank pain Musc: Reports: extremity pain, joint pain, joint stiffness, limited range of motion and deformity Skin/Breast: Reports: skin tenderness; Denies: rash Neuro: Reports: numbness in extremities, sensory changes and difficulty walking; Denies: frequent falls Psych: Denies: suicidal ideation [place]/Lymph: Denies: easy bruising PFSH ED 2 PFSH: Medical History (Updated 08/25/25 @ 18:16 by REGINA Gaytan) BPH (benign prostatic hyperplasia) Peripheral neuropathy Hypertension Social History Smoking and tobacco/nicotine status: never used tobacco/nicotine Physical Exam 2 Const: COMMON NORMALS: patient oriented x3 and alert HENMT: COMMON NORMALS: normocephalic HEAD & SCALP: normocephalic Neck/C-Spine: COMMON NORMALS: full ROM Chest: COMMONS NORMALS: normal inspection of the chest and normal palpation of entire chest wall Resp: COMMON NORMALS: normal respiratory effort and clear to auscultation bilaterally AUSCULTATION: clear to auscultation bilaterally Cardio: COMMON NORMALS: regular rhythm PALPATION: normal PMI RATE: t achycardic RHYTHM: regular rhythm GI: COMMON NORMALS: Soft to palpation and non-tender PALPATION: Yes Soft to palpation : COMMON NORMALS: Yes no CVA tenderness BLADDER/KIDNEY EXAM: Yes no CVA tenderness Back/Pelvis: COMMON NORMALS: no CVA tenderness and thoracic and lumbar spine normal to inspection Extremity: COMMON NORMALS: normal to inspection and no pedal edema Neuro: COMMON NORMALS: patient oriented x3 SENSORIUM/ORIENTATION: Yes alert Skin: COMMON NORMALS: turgor normal GENERAL SKIN EXAM: turgor normal Course 2 Reevaluation(s): Reevaluation #1: 08/25/25 1505:Called patient by phone to check on how he was doing. Doing great, no further issues. Vital Signs: Vital signs: Vital Signs Temperature 97.8 F 08/25/25 17:30 Pulse Rate 79 08/25/25 19:44 Respiratory Rate 16 08/25/25 17:30 Blood Pressure 128/76 08/25/25 19:44 Pulse Oximetry 96 08/25/25 19:44 Oxygen Delivery Me thod Room Air 08/25/25 19:16 MDM - Arrhythmia/Palpitations Medical Decision Making Patient is a 79-year-old gentleman that presents to the emergency room for palpitations and shortness of breath. He had recent gout, and was finishing up Medrol Dosepak. Besides this, he has had some issues with shortness of breath, and was seeing cardiology in [place]. He was referred to pulmonology. He has not had a stress test, or LHC. Patient will need ischemic workup. This was made clear in layman's terms to him and his . Will make a referral to cardiology here. Patient will need anticoagulation until further discernment as well. [id number] is 2 only for age. Patient does not have history of hypertension or CAD. Patient just had TSH in February that was in range. No reason to redraw this. Medical Records I reviewed the patient's medical records. Lab Data I reviewed the patient's lab results. 08/25/25 17:44 08/25/25 17:44 Radiology Impressions Chest X-Ray 08/25/25 17:48 IMPRESSION: No acute findings. 6 mm calcified granuloma in the right lower lobe, unchanged. Laboratory Results WBC 8.20 10^3/uL (3.29-11.43) 08/25/25 17:44 RBC 4.62 10^6/uL (3.85-5.65) 08/25/25 17:44 Hgb 13.40 g/dL (11.27-16.99) 08/25/25 17:44 Hct 42.6 % (37-53) 08/25/25 17:44 MCV 92.2 fl (82-101) 08/25/25 17:44 MCH 29.0 pg (27-33) 08/25/25 17:44 MCHC 31.5 g/dL (30-55) 08/25/25 17:44 RDW 11.9 % (12.1-15.1) L 08/25/25 17:44 Plt Count 211 10^3/cmm (157-399) 08/25/25 17:44 MPV 11.0 fL (7.4-10.4) H 08/25/25 17:44 Neut % (Auto) 79.1 % 08/25/25 17:44 Lymph % (Auto) 10.7 % 08/25/25 17:44 Crenshaw % (Auto) 8.2 % 08/25/25 17:44 Eos % (Auto) 1.0 % 08/25/25 17:44 Baso % (Auto) 0.5 % 08/25/25 17:44 Neut # (Auto) 6.49 10^3/uL (1.8-7.7) 08/25/25 17:44 Lymph # (Auto) 0.9 10^3/uL (0.8-4.8) 08/25/25 17:44 Crenshaw # (Auto) 0.7 10^3/uL (0.2-0.9) 08/25/25 17:44 Eos # (Auto) 0.1 10^3/uL (0.0-0.8) 08/25/25 17:44 Baso # (Auto) 0.0 10^3/uL (0.0-0.1) 08/25/25 17:44 Nucleated RBC % (auto) 0 % 08/25/25 17:44 Nucleated RBCs # 0.0 /100WBC 08/25/25 17:44 Sodium 142 mmol/L (136-145) 08/25/25 17:44 Potassium 3.8 mmol/L (3.5-5.1) 08/25/25 17:44 Chloride 102 mmol/L (98-107) 08/25/25 17:44 Carbon Dioxide 26 mmol/L (22-29) 08/25/25 17:44 Anion Gap 17.8 (5-19) 08/25/25 17:44 BUN 20 mg/dL (8-23) 08/25/25 17:44 Creatinine 1.2 mg/dL (0.7-1.2) 08/25/25 17:44 GFR Calculation Not Reportable 08/25/25 17:44 Glucose 107 mg/dL (65-115) 08/25/25 17:44 Calculated Osmolality 297 mOsm/kg (285-295) H 08/25/25 17:44 Calcium 9.6 mg/dL (8.5-10.5) 08/25/25 17:44 Total Bilirubin 0.3 mg/dL (0.15-1.2) 08/25/25 17:44 AST 24 U/L (0-40) 08/25/25 17:44 ALT 25 U/L (0-41) 08/25/25 17:44 Alkaline Phosphatase 74 U/L (40-130) 08/25/25 17:44 Total Protein 7.1 g/dL (6.6-8.7) 08/25/25 17:44 Albumin 4.5 g/dL (3.5-5.2) 08/25/25 17:44 Globulin 2.6 g/dL (1.3-4.6) 08/25/25 17:44 XR interpretation done by ED provider, pending radiology final review ED provider radiology interpretation(s): Nodule right lower lobe Discharge Plan Discharge Patient Disposition: Home Clinical Impression: Atrial fibrillation, new onset, Pulmonary nodule 1 cm or greater in diameter Condition: Stable Prescriptions: New Eliquis 5 mg tablet 5 mg PO Q12H Qty: 60 0RF diltiazem HCl [Cardizem CD] 180 mg capsule,extended release 24hr 180 mg PO DAILY Qty: 30 0RF No Action famotidine 20 mg tablet 20 mg PO QDAY prednisone 10 mg tablet 10 mg PO DAILY Qty: 5 0RF gabapentin 600 mg tablet See Rx Instructions .ROUTE .COMPLEX Qty: 90 11RF Dose Instruction: TAKE 1 TABLET BY MOUTH THREE TIMES DAILY Rx Instructions: TAKE 1 TABLET BY MOUTH THREE TIMES DAILY tamsulosin 0.4 mg capsule See Rx Instructions .ROUTE .COMPLEX Qty: 30 11RF Dose Instruction: Take 1 capsule by mouth once daily Rx Instructions: Take 1 capsule by mouth once daily finasteride 5 mg tablet See Rx Instructions .ROUTE .COMPLEX Qty: 90 3RF Dose Instruction: TAKE 1 TABLET EVERY DAY Rx Instructions: TAKE 1 TABLET EVERY DAY methylprednisolone [Medrol (Kevyn)] 4 mg tablets,dose pack See Rx Instructions PO PER PKG DIR Qty: 21 0RF Rx Instructions: PO PER PKG DIR Discharge Orders: Discharge ED (Routine); Ordered 08/25/25 Ordered By: Alexa Carpenter Referrals: Gilbert Coley M.D [Physician, Cardiology] Tony Gordon MD [Primary Care Provider, Family Practice] Discharge Diet: Low Salt Patient Instructions: A-fib (Atrial Fibrillation) (ED), Patient Portal & [facility] Instructions Activity Restrictions/Additional Instructions: - We discussed: Ischemic workup. This is a left heart catheterization also called an angiogram, or a stress test, or high-resolution cardiac CT. 1 of these will need to be done to discern if you have heart disease on an outpatient basis. A referral to the corporate receptionist Dr. Dhaliwal has been made. Case management will get a hold of you, however cardiology consult is in the system for hospital follow-up and you are welcome to call as well. - Tonight: Take your Cardizem at midnight, and 6 AM - Medication at the pharmacy: 1. Cardizem CD. This will control your heart rate. This is a long-acting medication like we gave you here 2. Eliquis. This is a potent blood thinner. It is recommended to reduce your risk of stroke associated with atrial fibrillation. Until this is further discerned with your workup as addressed above, you will need to be on a heavy- duty potent blood thinner. - Return to the ED: If you have palpitations again, fever greater than 100.4, worsening shortness of breath - Low-salt diet -Follow-up with your doctor for dedicated chest x-ray, or CT regarding incidental findings. Thank you for choosing [facility] for your healthcare needs today. You have been screened and evaluated and felt safe for discharge. Health conditions do change or evolve sometimes and as such it is important that you follow up with your Primary Doctor to be re checked, 3-5 days is a general good time frame for follow up. You are always welcome to return to the ED for re assessment if your symptoms are worsening or you have new concerns Print Language: Belarusian Coding Level of Care Code ED Director Of Assisted Living for Dayna Smith
[2025-08-25 18:19] LABS: Alanine Aminotransferase 25 U/L (0-41); Albumin Level 4.5 g/dL (3.5-5.2); Alkaline Phosphatase 74 U/L (40-130); Anion Gap 17.8 (5-19); Aspartate Amino Transferase 24 U/L (0-40); Blood Urea Nitrogen 20 mg/dL (8-23); Calcium 9.6 mg/dL (8.5-10.5); Carbon Dioxide 26 mmol/L (22-29); Chloride 102 mmol/L (98-107); Globulin 2.6 g/dL (1.3-4.6); Glucose 107 mg/dL (65-115); Osmolality Calculated 297 mOsm/kg (285-295); Potassium 3.8 mmol/L (3.5-5.1); Sodium 142 mmol/L (136-145); Total Protein 7.1 g/dL (6.6-8.7)
[2025-08-25 19:16] VITALS: BP 128/76; PULSE 106; O2SAT 96
[2025-08-25 19:44] VITALS: BP 128/76; PULSE 79; O2SAT 96
== END 2025-08-25 19:45 | disposition home or self-care (01) ==
PROVIDERS: Emergency Medicine; Emergency Provider Physician Assistant; PCP Family Medicine
DX: I48.91 Unspecified atrial fibrillation (principal); R91.1 Solitary pulmonary nodule; I10 Essential (primary) hypertension
CPT/HCPCS: 36415; 71045; 80053; 85025; 93005; 96374; 96376; 99285; J3490; J9999